=== PATIENT | male | born 1970 ===

== ENCOUNTER 2017-08-05 14:17 | Emergency (ER) | payer OTHER ==
[2017-08-05 15:29] VITALS: BP 145/80; PULSE 105; RESP 16; TEMP 98.4; O2SAT 96; BMI 35.2
--- NOTE | 2017-08-05 16:11 | ED PDOC ---
Arrival/HPI - General Chief Complaint: Lower Extremity Problem/Injury Time Seen by Provider: 08/05/17 14:59 Historian: Patient EM Caveat: Unstable Vital Signs - History of Present Illness Narrative History of Present Illness (Text): 08/05/17 16:03 Pt is a 47 year old male with a PMH of Gout and DMII who presents to the Ed c/o left knee pain, swelling and warmth that began 2 days ago and is now waking him from his sleep. Pt states that he was laying down jose on Friday, kneeling most of the day, and was likely the start of his knee pain. Patient reports not being able to weight bear well, uses a cane to ambulate since Friday says ice on the knee worsens the pain, heat helps. PMD is Dr. Iggy Soares whom he has not seen recently for his gout. Pt also takes Metformin and Glipizide daily. No tetanus vaccine that he can recall, denies numbness, fevers, nausea, vomiting, diarrhea, joint pain or any other complaints Time/Duration: < week Symptom Onset: Sudden Symptom Course: Unchanged Quality: Aching, Pressure Severity Level: 4 Activities at Onset: Rest Context: Home, Work Past Medical History - Provider Review Nursing Documentation Reviewed: Yes - Travel History Have you recently traveled outside [place] w/in the past 3 mons?: No - Infectious Disease Hx of Infectious Diseases: None - Cardiac Hx Cardiac Disorders: Yes Hx Heart Murmur: Yes Hx Hypertension: Yes - Pulmonary Hx Respiratory Disorders: No - Neurological Hx Neurological Disorder: No - HEENT Hx HEENT Disorder: No - Renal Hx Renal Disorder: No - Endocrine/Metabolic Hx Endocrine Disorders: Yes Hx Diabetes Mellitus Type 1: Yes - Hematological/Oncological Hx Blood Disorders: No - Integumentary Hx Dermatological Disorder: No - Musculoskeletal/Rheumatological Hx Musculoskeletal Disorders: Yes Hx Gout: Yes - Gastrointestinal Hx Gastrointestinal Disorders: No - Genitourinary/Gynecological Hx Genitourinary Disorders: No - Psychiatric Hx Psychophysiologic Disorder: No Hx Substance Use: No Family/Social History - Physician Review Nursing Documentation Reviewed: Yes Family/Social History: No Known Family HX Smoking Status: Heavy Smoker > 10 Cigarettes Daily Hx Alcohol Use: Yes Frequency of alcohol use: Socially Hx Substance Use: No Allergies/Home Meds Allergies/Adverse Reactions: Allergies No Known Allergies Allergy (Verified 08/05/17 15:26) Review of Systems - Review of Systems Constitutional: Normal Eyes: Normal ENT: Normal Respiratory: Normal Cardiovascular: Normal Gastrointestinal: Normal Genitourinary Male: Normal Musculoskeletal: Normal, Joint Swelling (left knee) Skin: Normal Neurological: Normal Endocrine: Normal Hemo/Lymphatic: Normal Psychiatric: Normal Physical Exam Vital Signs Reviewed: Yes Vital Signs Temp Pulse Resp BP Pulse Ox 08/05/17 15:26 98.4 F 105 H 16 145/80 96 Temperature: Afebrile Blood Pressure: Normal Pulse: Regular Respiratory Rate: Normal Appearance: Positive for: Well-Appearing, Non-Toxic, Comfortable Pain Distress: Moderate Mental Status: Positive for: Alert and Oriented X 3 - Systems Exam Head: Present: Atraumatic, Normocephalic Pupils: Present: PERRL Extroacular Muscles: Present: EOMI Conjunctiva: Present: Normal Mouth: Present: Moist Mucous Membranes Neck: Present: Normal Range of Motion Respiratory/Chest: Present: Clear to Auscultation, Good Air Exchange. No: Respiratory Distress, Accessory Muscle Use Cardiovascular: Present: Regular Rate and Rhythm, Normal S1, S2. No: Murmurs Abdomen: No: Tenderness, Distention, Peritoneal Signs Back: Present: Normal Inspection Upper Extremity: Present: Normal Inspection. No: Cyanosis, Edema Lower Extremity: Present: Normal Inspection, NORMAL PULSES, Tenderness (left knee, infra patellar), Swelling (left knee, infra patellar), Temperature Abnormalties (left knee, infra patellar), Neurovascularly Intact. No: Edema, CALF TENDERNESS, Erythema Neurological: Present: GCS=15, CN II-XII Intact, Speech Normal Skin: Present: Warm, Dry, Normal Color. No: Rashes Psychiatric: Present: Alert, Oriented x 3, Normal Insight, Normal Concentration Medical Decision Making ED Course and Treatment: 08/05/17 16:11 Pt is a 47 year old male with a PMH of Gout and DMII who presents to the Ed c/o left knee pain, swelling and warmth that began 2 days ago and is now waking him from his sleep Plan XR left knee ua pain management assess and dispo - Lab Interpretations Lab Results: Lab Results 08/05/17 16:45: Uric Acid 10.6 H I have reviewed the lab results: Yes (Uric acid elevated) - RAD Interpretation Radiology Orders: 08/05/17 15:44 KNEE WITH PATELLA LEFT 3 VIEW [RAD] Stat - Medication Orders Current Medication Orders: Discontinued Medications Colchicine (Colocrys) 1.2 mg PO DAILY [facility] Last Admin: 08/05/17 17:30 Dose: 1.2 mg Ketorolac Tromethamine (Toradol) 30 mg IM STAT STA Stop: 08/05/17 16:19 Last Admin: 08/05/17 16:37 Dose: 30 mg MAR Pain Assessment Document 08/05/17 16:37 OCS (Rec: 08/05/17 16:37 OCS [id number]) Pain Reassessment Is this a pain reassessment? Yes Sleep Is patient sleeping during reassessment? No Presence of Pain Presence of Pain Yes Pain Scale Used Pain Scale Used Numeric Location Left, Right or Bilateral Left Pain Location Body Site Knee Description Description Constant Pain Behavior Guarding Irritability Facial Grimacing Aggravating Factors ADL's IM Administration Charges Document 08/05/17 16:37 OCS (Rec: 08/05/17 16:37 OCS [id number]) Injection Site MAR Injection Site Right Deltoid Charges for Administration # of IM Administrations 1 Disposition/Present on Arrival - Present on Arrival Any Indicators Present on Arrival: Yes History of DVT/PE: No History of Uncontrolled Diabetes: No Urinary Catheter: No History of Decub. Ulcer: No History Surgical Site Infection Following: None - Disposition Have Diagnosis and Disposition been Completed?: Yes Diagnosis: Gout attack, Left knee pain Disposition: HOME/ ROUTINE Disposition Time: 17:11 Patient Plan: Discharge Condition: GOOD Discharge Instructions (ExitCare): Gout (DC), Knee Pain Additional Instructions: Follow up with your Primary doctor for management of gout joint pain. Take the medication you have been prescribed, as directed. Return tot he ER if worsening of symptoms over the next 24 hrs Prescriptions: Colchicine [Colcrys] 0.6 mg PO Q12 5 Days #10 tablet Naproxen [Naprosyn] 500 mg PO BID #10 tablet Referrals: Iggy Soares MD [Primary Care Provider] - Follow up with primary Forms: [facility] (Swedish), WORK NOTE
--- NOTE | 2017-08-05 17:33 | RAD ---
PROCEDURE: Left Knee with patella Radiographs. HISTORY: Pain. COMPARISON: None. FINDINGS: BONES: Normal. No fracture. JOINTS: Normal. No osteoarthritis. JOINT EFFUSION: Moderate size pleural effusion OTHER FINDINGS: None. IMPRESSION: Moderate pleural effusion. No fracture
== END 2017-08-05 17:42 | disposition home or self-care (01) ==
LOC: ED 14:17
DX: M10.9 Gout, unspecified (principal); M25.562 Pain in left knee; F17.210 Nicotine dependence, cigarettes, uncomplicated; I10 Essential (primary) hypertension
CPT/HCPCS: 73562; 84550; 96372; 99283; J1885